=== PATIENT | female | born 1990 ===

== ENCOUNTER 2021-05-08 14:24 | Outpatient (CLI) | payer BC ==
[~2021-05-08] VITALS: Ht 175.3 cm; Wt 140.9 kg
--- NOTE | 2021-05-08 14:35 | NUR ---
Patient ambulatory to LR3 with spouse, changed into gown, FHR/TOCO monitors applied. Patient sent from office for increased blood pressures. Patient denies any leaking of fluid/vaginal bleeding/regular contractions/decreased movement. Plan of care discussed and questions answered. Lab at bedside obtaining blood.
[2021-05-08 15:00] LABS: COLLECTION METHOD CLEAN CATCH
[2021-05-08 15:06] LABS: BASO % 0.1 % (0.0-2.0); EOS # 0.1 K/mm3 (0.0-0.7); EOS % 0.7 % (0.0-4.0); GRAN # 6.3 K/mm3 (1.4-6.5); GRAN % 71.5 % (42.2-75.2); HEMATOCRIT 38.6 % (37.0-47.0); HEMOGLOBIN 12.9 g/dl (12.5-16.0); LYMPH # 1.6 K/mm3 (1.2-3.4); LYMPH % 18.3 % (20.0-51.0); MEAN CELL VOLUME 82 fl (80.0-100.0); MEAN CORPUSCULAR HEMOGLOBIN 28 pg (27-31); MEAN CORPUSCULAR HGB CONC 33 g/dl (33.0-37.0); MEAN PLATELET VOLUME 10.8 fl (7.4-10.4); MONO # 0.8 K/mm3 (0.1-0.6); MONO % 8.7 % (1.7-9.3); PLATELET COUNT 228 K/mm3 (130-400); RED BLOOD COUNT 4.69 M/mm3 (4.10-5.30); REDCELL DISTRIBUTION WIDTH-CV 14.3 % (11.5-14.5)
[2021-05-08 15:09] LABS: MUCOUS Present (NOT PRESENT); PH 6 (5-8); URINE APPEARANCE Hazy (CLEAR/HAZY); URINE BACTERIA Rare /hpf (NONE SEEN); URINE BILIRUBIN Negative (NEGATIVE); URINE BLOOD Negative (NEGATIVE); URINE COLOR Yellow (YELLOW); URINE GLUCOSE 1+ (NEGATIVE); URINE KETONE Negative (NEGATIVE); URINE LEUKOCYTE ESTERASE Negative (NEGATIVE); URINE NITRATE Negative (NEGATIVE); URINE PROTEIN(semi-quant) Negative (NEGATIVE); URINE RBC 0-2 /hpf (0-2); URINE UROBILINOGEN Negative (NEGATIVE)
[2021-05-08] MEDS ORDERED: EZFE 200200 MG PO (15:13)
[2021-05-08] MEDS ORDERED: PRENATAL TABLET PO (15:13)
[2021-05-08 15:15] VITALS: BP 142/87; PULSE 117; TEMP 98.4
[2021-05-08 15:20] LABS: ALBUMIN 2.9 gm/dL (3.5-5.0); BILIRUBIN,TOTAL 0.8 mg/dL (0.2-1.2); CALCIUM 8.5 mg/dL (8.4-10.2); CREATININE, serum 0.55 mg/dL (0.57-1.11); POTASSIUM 3.7 mmol/L (3.5-4.5); TOTAL PROTEIN 6.6 gm/dL (6.2-8.1)
--- NOTE | 2021-05-08 15:26 | NUR ---
Patient off monitors. Given discharge instructions and verbalizes understanding. 1540: Patient ambulatory off unit with spouse.
[2021-05-08 15:28] VITALS: BP 120/83; PULSE 112
[2021-05-14] MEDS ORDERED: IBU600 MG PO (09:34)
== END 2021-05-08 15:40 | disposition home or self-care (01) ==
LOC: LDRO 14:24
PROVIDERS: Obstetrics & Gynecology
DX: O16.3 Unspecified maternal hypertension, third trimester (principal); Z3A.40 40 weeks gestation of pregnancy

== ENCOUNTER 2022-04-27 07:01 | Inpatient (IN) | payer BC ==
[~2022-04-27] VITALS: Ht 175.3 cm; Wt 158.6 kg
[2022-04-27] VITALS (29 sets, daily range): BP systolic 106–163; BP diastolic 56–81; PULSE 79–114; TEMP 97.4–98
[~2022-04-27 07:01] MED LIST: EZFE 200200 MG PO; IBU600 MG PO; PRENATAL TABLET PO
--- NOTE | 2022-04-27 07:15 | NUR ---
PT ARRIVES AMBULATORY TO UNIT FOR SCHEDULED IOL FOR MACROSOMIA. PT DENIES CONTRACTIONS, DENIES LEAKING OF FLUID AND REPORTS POSITIVE MOVEMENT. ORIENTED TO LABOR ROOM AND PLAN OF CARE. EFM TRACING CATEGORY 1 UPON ADMISSION. WILL CONTINUE WITH PLAN OF CARE.
[2022-04-27 08:10] LABS: BASO % 0.3 % (0.0-2.0); EOS # 0.1 K/mm3 (0.0-0.7); EOS % 0.9 % (0.0-4.0); GRAN # 6.3 K/mm3 (1.4-6.5); GRAN % 65.7 % (42.2-75.2); HEMATOCRIT 37.7 % (37.0-47.0); HEMOGLOBIN 12.7 g/dl (12.5-16.0); LYMPH # 2.4 K/mm3 (1.2-3.4); LYMPH % 25.3 % (20.0-51.0); MEAN CELL VOLUME 84 fl (80.0-100.0); MEAN CORPUSCULAR HEMOGLOBIN 28 pg (27-31); MEAN CORPUSCULAR HGB CONC 34 g/dl (33.0-37.0); MEAN PLATELET VOLUME 11.3 fl (7.4-10.4); MONO # 0.7 K/mm3 (0.1-0.6); MONO % 7.2 % (1.7-9.3); PLATELET COUNT 212 K/mm3 (130-400); RED BLOOD COUNT 4.49 M/mm3 (4.10-5.30); REDCELL DISTRIBUTION WIDTH-CV 14.1 % (11.5-14.5)
--- NOTE | 2022-04-27 08:54 | NUR ---
AT BEDSIDE. SVE /-1. AROM WITH CLEAR FLUID. FSE PLACED DUE TO MATERNAL HABITUS/DIFFICULTY TRACING EFM.
--- NOTE | 2022-04-27 10:10 | NUR ---
JAZMYN BAKER CASH ACCOUNTING CLERK AT BEDSIDE. PT TO SITTING POSITION FOR EPIDURAL PLACEMENT. FSE CONTINUES TRACING CATEGORY 1 STRIP. DIFFICULTY TRACING TOCO DUE TO MATERNAL POSITIONING AND HABITUS. MATERNAL VITAL SIGNS STABLE. 1010: TEST DOSE PER THALIA MCCLAIN. PT TOLERATED WELL. CATEGORY 1 EFM TRACING. LR BOLUS CONTINUES INFUSING. MATERNAL VITAL SIGNS STABLE.
--- NOTE | 2022-04-27 12:38 | NUR ---
1238: AT BEDSIDE, PT COMPLETE, BEGINS PUSHING AT THIS TIME. MOVES HEAD WELL, GREAT MATERNAL EFFORT. ALL APPROPRIATE STAFF NOTIFIED AND AT BEDSIDE. 1246: OF VIABLE MALE INFANT AT THIS TIME. PLACED ON MATERNAL ABDOMEN, DRIED AND STIMULATED. STRONG CRY NOTED. CORD CLAMPED X2 AND CUT BY FOB. CARE OF INFANT ASSUMED BY ERIK SLADE RN. MECONIUM NOTED IN DRAPE FOLLOWING DELIVERY. 1251: OF PLACENTA AT THIS TIME. PITOCIN BOLUS INFUSING PER PROTOCOL. MATERNAL VITAL SIGNS STABLE. LOCHIA WNL. FUNDUS FIRM AT UMBILICUS. BEGINS REPAIR OF 2ND DEGREE PERINEAL AND RIGHT LABIAL LACERATION. WILL CONTINUE WITH PROTOCOL/PLAN OF CARE.
[2022-04-28] VITALS: BP 134/63; PULSE 82; TEMP 97.5
[2022-04-28 03:45] VITALS: BP 135/81; PULSE 80; TEMP 98.2
[2022-04-28 07:45] VITALS: BP 120/55; PULSE 75; TEMP 97.5
--- NOTE | 2022-04-28 09:17 | NUR ---
Initial visit attempt; Patient greeted [employer] Welder though about to undergo testing. Atomic Welder offered God's blessings and left a card offering congratulations for the of her son and information regarding the availability of [facility] at [facility].
[2022-04-28 11:45] VITALS: BP 122/82; PULSE 80
[2022-04-28 17:13] VITALS: BP 127/70; PULSE 77
[2022-04-28 21:45] VITALS: BP 127/74; PULSE 87; TEMP 97.5
[2022-04-29 08:00] VITALS: BP 143/69; PULSE 100
[2022-04-29] MEDS ORDERED: IBU600 MG PO (08:37)
== END 2022-04-29 12:10 | disposition home or self-care (01) | DRG 807 ==
LOC: LDR 07:01 → OB 07:01
PROVIDERS: ADMIT Obstetrics & Gynecology
PROC: 10E0XZZ Delivery of Products of Conception, External Approach (ICD-10-PCS; principal; 2022-04-27)
PROC: 0KQM0ZZ Repair Perineum Muscle, Open Approach (ICD-10-PCS; 2022-04-27)
PROC: 10907ZC Drainage of Amniotic Fluid, Therapeutic from Products of Conception, Via Natural or Artificial Opening (ICD-10-PCS; 2022-04-27)
PROC: 3E033VJ Introduction of Other Hormone into Peripheral Vein, Percutaneous Approach (ICD-10-PCS; 2022-04-27)
DX: O36.63X0 Maternal care for excessive fetal growth, third trimester, not applicable or unspecified (principal); Z37.0 Single live birth; O99.02 Anemia complicating childbirth; D64.9 Anemia, unspecified; O99.214 Obesity complicating childbirth; O70.1 Second degree perineal laceration during delivery; Z3A.39 39 weeks gestation of pregnancy
CPT/HCPCS: J2590; J7120